=== PATIENT | female | born 1960 | race African-American/Black ===

== ENCOUNTER 2018-12-14 22:21 | Emergency (ER) | payer MEDICAID, OTHER ==
[~2018-12-14] VITALS: Ht 175.3 cm; Wt 228.0 kg
[2018-12-14] MEDS ORDERED: METHYLPREDNISOLONE SOD SUCC 125 MG/2 ML VIAL IV STA (23:42)
[2018-12-14] MEDS ORDERED: ALBUTEROL (0.083%) 2.5MG/3ML NEB HHN STA (23:42)
[2018-12-14] MEDS ORDERED: FUROSEMIDE 40MG/4ML VIAL IV ONE (23:45)
[2018-12-15 00:20] LABS: BASOPHILS % 0.8 % (0.0-2.0); EOSINOPHILS % 1.5 % (0.0-5.0); HEMATOCRIT. 41.9 % (36.0-48.0); HEMOGLOBIN. 13.3 g/dL (12.0-16.0); LYMPHOCYTES % 11.2 % (20.0-50.0); MEAN PLATELET VOLUME 8.6 fl (7.4-10.4); MONOCYTES % 8.6 % (2.0-8.0); NEUTROPHILS % 77.9 % (40.0-76.0); PLATELET 218 x1000/uL (130-400); RED BLOOD CELL COUNT 4.75 mill/uL (4.2-5.4); RED CELL DISTRIBUTION WIDTH 18.1 % (11.6-14.6)
[2018-12-15 00:27] LABS: CHLORIDE 110 mEq/L (98-107)
[2018-12-15] MEDS ORDERED: IPRATROPIUM BROMIDE (0.02%) 0.5MG/2.5ML NEB HHN NR (02:15)
[2018-12-15 03:31] LABS: INR 3.1; PROTHROMBIN TIME 30.3 sec (9.6-11.0)
[2018-12-15 04:14] VITALS: BP 145/66
== END 2018-12-15 04:27 | disposition short-term general hospital (02) ==
LOC: ER 22:21 → CANBEDREQ 12-15 05:58
DX: I50.9 Heart failure, unspecified (principal); R06.00 Dyspnea, unspecified; E87.70 Fluid overload, unspecified; J44.9 Chronic obstructive pulmonary disease, unspecified; E66.01 Morbid (severe) obesity due to excess calories
CPT/HCPCS: 36415; 71045; 80053; 83880; 84484; 85025; 85610; 93005; 94640; 96374; 96375; 99285; J1940; J2930; J7611; Z7610

== ENCOUNTER 2020-10-09 21:23 | Inpatient (IN) | payer MEDICAID ==
[~2020-10-09] VITALS: Ht 170.2 cm; Wt 181.0 kg
[2020-10-09] MEDS ORDERED: METHYLPREDNISOLONE SOD SUCC 125 MG/2 ML VIAL IV STA (22:51)
[2020-10-09] MEDS ORDERED: IPRATROPIUM BROMIDE (0.02%) 0.5MG/2.5ML NEB HHN STA (22:51)
[2020-10-09] MEDS ORDERED: FUROSEMIDE 40MG/4ML VIAL IV ONE (23:00)
[2020-10-09] MEDS ORDERED: NITROGLYCERIN OINT 1GM/INCH UDPKT TD ONE (23:00)
[2020-10-09] MEDS: ALBUTEROL (0.083%) 2.5MG/3ML NEB HHN SCH ×2 (23:11→23:12)
[2020-10-10 00:15] LABS: HEMATOCRIT. 46.1 % (36.0-48.0); HEMOGLOBIN. 14.7 g/dL (12.0-16.0); MEAN CORPUSCULAR HEMOGLOBIN 27.9 pg (28.0-32.0); MEAN CORPUSCULAR VOLUME 87.8 fL (81.0-99.0); MEAN PLATELET VOLUME 8.4 fl (7.4-10.4); PLATELET 205 x1000/uL (130-400); RED BLOOD CELL COUNT 5.25 mill/uL (4.2-5.4); RED CELL DISTRIBUTION WIDTH 25.7 % (11.6-14.6)
[2020-10-10 00:22] LABS: CHLORIDE 92 mEq/L (98-107)
[2020-10-10] MEDS ORDERED: AZITHROMYCIN 500 MG in DEXT 5% WATER 250 ML IV ONE (00:45)
[2020-10-10] MEDS ORDERED: PIPERACILLIN/TAZ 3.375G PREMIX 50 ML IV ONE (00:45)
[2020-10-10 01:02] LABS: INR 5.9
[2020-10-10 04:49] LABS: PLATELET ESTIMATE NORMAL
[2020-10-10 08:14] LABS: BG BASE EXCESS 13.8 mmol/L (-2.0-2.0); BG CARBOXYHEMOGLOBIN 2.1 % (0.5-1.5); BG DEOXYHEMOGLOBIN 4.3 % (0.0-5.0); BG FRACTION INSPIRED OXYGEN 70; BG HCO3 ACT 46.5 mmol/L (22.0-26.0); BG METHEMOGLOBIN 0.4 % (0.0-1.5); BG OXYGEN SATURATION 95.6 % (92.0-98.5); BG OXYHEMOGLOBIN 93.2 % (94.0-97.0); BG PCO2 102.8 mmHg (35.0-45.0); BG PH 7.273 (7.350-7.450); BG PO2 87.4 mmHg (75.0-100.0); BG SAMPLE SITE RIGHT RADIAL; BG TOTAL HEMOGLOBIN 16.1 g/dL (12.0-18.0); BG TOTAL RESPIRATORY RATE 25 b/min; BG VENT MODE MASK - BIPAP
[2020-10-10] MEDS ORDERED: ALBUTEROL (0.5%) 2.5MG/0.5ML NEB HHN ONE (08:45)
[2020-10-10] MEDS ORDERED: ALBUTEROL 6.7GM HFA INHALER ORI PRN (11:00)
[2020-10-10] MEDS ORDERED: NOREPINEPHRINE 32 MG in DEXT 5% WATER 218 ML IV PRN (11:00)
[2020-10-10] MEDS ORDERED: POTASSIUM CHLORIDE INJ 40 MEQ in DEXT 5% WATER 250 ML IV NR (11:00)
[2020-10-10] MEDS: NOREPINEPHRINE 32 MG in DEXT 5% WATER 218 ML IV PRN (12:11)
[2020-10-10] MEDS ORDERED: CLONIDINE 0.1MG TABLET PO PRN (12:45)
[2020-10-10] MEDS ORDERED: GUAIFENESIN 200MG/10ML SUGAR FREE UDC PO PRN (12:45)
[2020-10-10] MEDS ORDERED: DOCUSATE SODIUM 100MG CAPSULE PO PRN (12:45)
[2020-10-10] MEDS ORDERED: ONDANSETRON HCL 4MG/2ML INJ IV PRN (12:45)
[2020-10-10] MEDS ORDERED: ACETAMINOPHEN 325MG TABLET PO PRN (12:45)
[2020-10-10] MEDS ORDERED: IPRATROPIUM/ALBUTEROL 0.5-3(2.5)MG/3ML NEB HHN PRN (12:45)
[2020-10-10] MEDS: PIPERACILLIN/TAZ 3.375G PREMIX 50 ML IV SCH ×2 (12:59→19:08)
[2020-10-10 13:09] LABS: BG BASE EXCESS 11.9 mmol/L (-2.0-2.0); BG CARBOXYHEMOGLOBIN 1.8 % (0.5-1.5); BG DEOXYHEMOGLOBIN 3.6 % (0.0-5.0); BG FRACTION INSPIRED OXYGEN 70; BG HCO3 ACT 46.7 mmol/L (22.0-26.0); BG METHEMOGLOBIN 0.4 % (0.0-1.5); BG OXYGEN SATURATION 96.3 % (92.0-98.5); BG OXYHEMOGLOBIN 94.2 % (94.0-97.0); BG PH 7.197 (7.350-7.450); BG SAMPLE SITE RIGHT RADIAL; BG TOTAL HEMOGLOBIN 16.5 g/dL (12.0-18.0); BG TOTAL RESPIRATORY RATE 20 b/min; BG VENT MODE MASK - BIPAP
[2020-10-10] MEDS ORDERED: FUROSEMIDE 40MG/4ML VIAL IVP NR (13:15)
[2020-10-10] MEDS ORDERED: MECL-217 PO (21:55)
[2020-10-10] MEDS ORDERED: ALBU6.7H9 IH (21:55)
[2020-10-10] MEDS ORDERED: ACET-2708 PO (21:55)
[2020-10-10] MEDS ORDERED: ATOR40TA70 MT (21:55)
[2020-10-10] MEDS ORDERED: METO2.5T2 PO (21:55)
[2020-10-10] MEDS ORDERED: WARF-53 PO (21:55)
[2020-10-10] MEDS ORDERED: POTA20TA12 MT (21:55)
[2020-10-10 23:00] VITALS: BP 113/72
[2020-10-10 23:45] VITALS: BP 88/45
[2020-10-10 23:49] VITALS: BP 117/104
[2020-10-11] VITALS (105 sets, daily range): BP systolic 78–154; BP diastolic 36–113
[2020-10-11] MEDS: PIPERACILLIN/TAZ 3.375G PREMIX 50 ML IV SCH ×2 (01:41→06:21)
[2020-10-11 05:49] LABS: CHLORIDE 90 mEq/L (98-107)
[2020-10-11 05:55] LABS: HEMATOCRIT. 44.5 % (36.0-48.0); HEMOGLOBIN. 14.1 g/dL (12.0-16.0); MEAN CORPUSCULAR HEMOGLOBIN 27.7 pg (28.0-32.0); MEAN CORPUSCULAR VOLUME 87.5 fL (81.0-99.0); MEAN PLATELET VOLUME 8.5 fl (7.4-10.4); PLATELET 279 x1000/uL (130-400); RED BLOOD CELL COUNT 5.08 mill/uL (4.2-5.4); RED CELL DISTRIBUTION WIDTH 25.7 % (11.6-14.6)
[2020-10-11 06:02] LABS: T4 FREE 1.14 ng/dL (0.76-1.46)
[2020-10-11 06:03] LABS: LDL CHOLESTEROL 37 mg/dL (5-100); PROTHROMBIN TIME 67.5 sec (9.6-11.0)
[2020-10-11 06:06] LABS: HDL CHOLESTEROL 66 mg/dL (40-59)
[2020-10-11 06:59] LABS: INR 7.4
[2020-10-11] MEDS ORDERED: PHYTONADIONE 10MG/ML AMP SUBCUT NR ×2 (07:15→09:15)
[2020-10-11] MEDS ORDERED: FUROSEMIDE 40MG/4ML VIAL IV SCH (09:00)
[2020-10-11] MEDS ORDERED: POTASSIUM CHLORIDE INJ 40 MEQ in DEXT 5% WATER 250 ML IV ONE (09:00)
[2020-10-11] MEDS ORDERED: POTASSIUM CHLORIDE 20MEQ TABLET SR PO NR (09:30)
[2020-10-11] MEDS: SPIRONOLACTONE 50MG TABLET PO SCH (09:42)
[2020-10-11 10:07] LABS: BG BASE EXCESS 13.2 mmol/L (-2.0-2.0); BG CARBOXYHEMOGLOBIN 1.5 % (0.5-1.5); BG DEOXYHEMOGLOBIN 1.5 % (0.0-5.0); BG FRACTION INSPIRED OXYGEN 55; BG HCO3 ACT 39.6 mmol/L (22.0-26.0); BG METHEMOGLOBIN 0.2 % (0.0-1.5); BG OXYGEN SATURATION 98.5 % (92.0-98.5); BG OXYHEMOGLOBIN 96.8 % (94.0-97.0); BG PCO2 57.1 mmHg (35.0-45.0); BG PH 7.459 (7.350-7.450); BG PO2 111.4 mmHg (75.0-100.0); BG SAMPLE SITE RIGHT RADIAL; BG TOTAL HEMOGLOBIN 14.4 g/dL (12.0-18.0); BG TOTAL RESPIRATORY RATE 22 b/min; BG VENT MODE MASK - BIPAP
[2020-10-11 11:20] LABS: INR 7.2
[2020-10-11] MEDS: FUROSEMIDE 40MG/4ML VIAL IV SCH ×2 (12:34→17:44)
[2020-10-11] MEDS: PIPERACILLIN/TAZOBACTAM 3.375 G in DEXT 5% WATER 100 ML IV SCH ×2 (12:35→17:44)
[2020-10-11] MEDS: MIDODRINE HCL 5MG TABLET PO SCH ×2 (12:35→17:43)
[2020-10-11 15:55] LABS: PLATELET ESTIMATE NORMAL
[2020-10-11 17:02] LABS: HEMATOCRIT 40.6 % (36.0-48.0); HEMOGLOBIN 12.9 g/dL (12.0-16.0)
[2020-10-11 17:16] LABS: INR 3.2; PROTHROMBIN TIME 31.4 sec (9.6-11.0)
[2020-10-11] MEDS: NOREPINEPHRINE 32 MG in DEXT 5% WATER 218 ML IV PRN (20:09)
[2020-10-12] VITALS (59 sets, daily range): BP systolic 62–132; BP diastolic 33–88
[2020-10-12] MEDS: PIPERACILLIN/TAZOBACTAM 3.375 G in DEXT 5% WATER 100 ML IV SCH ×4 (00:48→17:55)
[2020-10-12] MEDS ORDERED: LIDOCAINE HCL/PF 1% 2ML VIAL ONE (05:00)
[2020-10-12 07:53] LABS: BG BASE EXCESS 17.8 mmol/L (-2.0-2.0); BG CARBOXYHEMOGLOBIN 0.7 % (0.5-1.5); BG DEOXYHEMOGLOBIN 7.5 % (0.0-5.0); BG FRACTION INSPIRED OXYGEN 55; BG HCO3 ACT 45.7 mmol/L (22.0-26.0); BG METHEMOGLOBIN 0.2 % (0.0-1.5); BG OXYGEN SATURATION 92.4 % (92.0-98.5); BG OXYHEMOGLOBIN 91.6 % (94.0-97.0); BG PCO2 71.5 mmHg (35.0-45.0); BG PH 7.423 (7.350-7.450); BG PO2 64.6 mmHg (75.0-100.0); BG SAMPLE SITE RIGHT RADIAL; BG TOTAL HEMOGLOBIN 12.2 g/dL (12.0-18.0); BG TOTAL RESPIRATORY RATE 20 b/min; BG VENT MODE MASK - BIPAP
[2020-10-12 08:08] LABS: BASOPHILS % 0.6 % (0.0-2.0); EOSINOPHILS % 0.6 % (0.0-5.0); HEMATOCRIT. 34.7 % (36.0-48.0); HEMOGLOBIN. 11.2 g/dL (12.0-16.0); LYMPHOCYTES % 8.2 % (20.0-50.0); MEAN CORPUSCULAR HEMOGLOBIN 27.8 pg (28.0-32.0); MEAN CORPUSCULAR VOLUME 86.3 fL (81.0-99.0); MEAN PLATELET VOLUME 7.9 fl (7.4-10.4); MONOCYTES % 10.1 % (2.0-8.0); NEUTROPHILS % 80.5 % (40.0-76.0); PLATELET 194 x1000/uL (130-400); RED BLOOD CELL COUNT 4.03 mill/uL (4.2-5.4); RED CELL DISTRIBUTION WIDTH 25.3 % (11.6-14.6)
[2020-10-12 08:16] LABS: CHLORIDE 91 mEq/L (98-107)
[2020-10-12 08:20] LABS: INR 2.2; PROTHROMBIN TIME 22.4 sec (9.6-11.0)
[2020-10-12] MEDS ORDERED: POTASSIUM CHLORIDE 20MEQ TABLET SR PO NR (09:00)
[2020-10-12] MEDS: MIDODRINE HCL 5MG TABLET PO SCH ×3 (09:07→17:55)
[2020-10-12] MEDS: FUROSEMIDE 40MG/4ML VIAL IV SCH ×3 (09:07→17:54)
[2020-10-12] MEDS: SPIRONOLACTONE 50MG TABLET PO SCH (09:07)
[2020-10-12] MEDS ORDERED: POTASSIUM CHLORIDE 20MEQ TABLET SR PO SCH (12:00)
[2020-10-13] VITALS (12 sets, daily range): BP systolic 85–100; BP diastolic 44–72
[2020-10-13] MEDS: PIPERACILLIN/TAZOBACTAM 3.375 G in DEXT 5% WATER 100 ML IV SCH ×4 (01:39→17:54)
[2020-10-13] MEDS: SPIRONOLACTONE 50MG TABLET PO SCH (08:53)
[2020-10-13] MEDS: MIDODRINE HCL 5MG TABLET PO SCH ×3 (08:53→17:54)
[2020-10-13] MEDS: FUROSEMIDE 40MG/4ML VIAL IV SCH ×3 (08:53→17:50)
[2020-10-13 11:16] LABS: INR 1.4; PROTHROMBIN TIME 14.3 sec (9.6-11.0)
[2020-10-13] MEDS ORDERED: ENOXAPARIN 150MG/ML SYR SUBCUT SCH ×2 (13:00→23:00)
== END 2020-10-13 23:45 | disposition short-term general hospital (02) | DRG 133 ==
LOC: ER 21:50 → MICUSO 10-10 08:53 → EDBEDREQTM 10-10 09:01 → EDBEDREQSVC 10-10 09:01 → EDBEDREQ 10-10 09:01 → ENRESERV 10-10 21:11 → 5EST 10-12 16:57
PROVIDERS: ADMIT Hospitalist; ATTEND Hospitalist
PROC: 02HV33Z Insertion of Infusion Device into Superior Vena Cava, Percutaneous Approach (ICD-10-PCS; principal; 2020-10-10)
PROC: B548ZZA Ultrasonography of Superior Vena Cava, Guidance (ICD-10-PCS; 2020-10-10)
PROC: 30233M1 Transfusion of Nonautologous Plasma Cryoprecipitate into Peripheral Vein, Percutaneous Approach (ICD-10-PCS; 2020-10-11)
PROC: 5A09457 Assistance with Respiratory Ventilation, 24-96 Consecutive Hours, Continuous Positive Airway Pressure (ICD-10-PCS; 2020-10-11)
DX: J96.02 Acute respiratory failure with hypercapnia (principal); I50.43 Acute on chronic combined systolic (congestive) and diastolic (congestive) heart failure; J84.9 Interstitial pulmonary disease, unspecified; I27.20 Pulmonary hypertension, unspecified; D68.59 Other primary thrombophilia; E66.2 Morbid (severe) obesity with alveolar hypoventilation; Z68.44 Body mass index [BMI] 60.0-69.9, adult; I11.0 Hypertensive heart disease with heart failure; E87.6 Hypokalemia; Z20.822 Contact with and (suspected) exposure to COVID-19; J44.9 Chronic obstructive pulmonary disease, unspecified; Z99.81 Dependence on supplemental oxygen; Z79.01 Long term (current) use of anticoagulants; Z86.711 Personal history of pulmonary embolism; Z86.718 Personal history of other venous thrombosis and embolism
CPT/HCPCS: 36415; 36600; 71045; 76937; 80048; 80053; 80061; 82375; 82805; 82962; 83605; 83735; 83880; 84439; 84443; 84484; 85014; 85018; 85025; 85049; 85384; 86850; 86900; 86927; 87426; 93005; 93306; 93970; 94640; 94660; 99285; A6261; C1725; C1893; J0456; J1650; J1940; J2405; J2543; J2930; J3430; J3480; J3490; J7040; J7060; P9017; U0003; U0005